=== PATIENT | female | born 2000 | race Caucasian/White ===

== ENCOUNTER 2020-01-31 14:09 | Emergency (ER) | payer OTHER, SELFPAY ==
[2020-01-31] VITALS (7 sets, daily range): BP systolic 96–122; BP diastolic 48–67; PULSE 86–126; RESP 16–34; TEMP 37.1–38; O2SAT 98–100
--- NOTE | 2020-01-31 14:27 | CT_ITS ---
STUDY: CT ABDOMEN AND PELVIS WITHOUT CONTRAST REASON FOR EXAM: Female, 19 years old. PT STATED SUPRAPUBIC REDNESS AND PAIN STARTED 3 DAYS AGO RADIATION DOSAGE (If Supplied By Facility): CTDIvol = ( 7.08 ) mGy, DLP = ( 458.46 ) mGycm TECHNIQUE: Transaxial images were obtained from the dome of the diaphragm to the symphysis pubis without oral contrast, and without intravenous contrast. Sagittal and coronal images were reconstructed. Individualized dose optimization techniques were used for this CT. COMPARISON: None. FINDINGS: The visualized lung bases are unremarkable. The visualized portions of the heart are within normal limits. Normal liver. Normal gallbladder and extrahepatic biliary system. Normal spleen. Normal pancreas. Punctate calcification in the right adrenal gland. 2 mm calculus in the lower pole calyx of the right kidney. Normal left kidney. Normal visualized stomach. Normal small intestine. Normal colon. The appendix is visualized and appears normal. Normal abdominal aorta. Normal inferior vena cava. Normal retroperitoneum. Normal urinary bladder. Small follicles are seen in the right ovary. Phleboliths are seen in the pelvis. There is evidence of skin thickening and increased markings in the subcutaneous fat within the anterior lower abdominal and pelvic aguirre. This is slightly worse towards the right side of the midline. No fluid or abscess collection is seen. Slightly enlarged bilateral inguinal lymph nodes. Normal osseous structures. CT/Abdomen/Pelvis without Cont IMPRESSION: Findings suggestive of a cellulitis with skin thickening and subcutaneous inflammatory changes in the lower anterior abdominal and pelvic aguirre without a discrete abscess or fluid collection. Punctate calcification the lower pole calyx of the right kidney. Electronically Signed: Nitesh Ocampo, at 15:27 EDT , Service support ,
[2020-01-31] MEDS: Acetaminophen 500 MG Tablet 1000 MG PO (14:42)
[2020-01-31] MEDS: Ondansetron 4 MG/2 ML Vial IV (14:43)
[2020-01-31] MEDS: Morphine 4 MG/ML Syringe IV (14:43)
[2020-01-31] MEDS: 0.9% Normal Saline 1,000 ML 999 ML IV (14:43)
[2020-01-31 15:05] LABS: Absolute Lymphocyte Count 1.32 X10^3/uL (0.83-4.51); Absolute Neutrophil Count 17.2 X10^3/uL (2.0-7.7); Basophil# 0.06 X10^3/uL; Basophil% 0.3 % (0-1); Eosinophil# 0.14 X10^3/uL; Eosinophils% 0.7 % (0-5); Hematocrit 37.6 % (37-47); Hemoglobin 12.3 g/dL (12.0-15.0); Lymphocyte # 1.32 X10^3/ul (4.0); Lymphocyte % 6.4 % (19-41); Mean Corp Hgb Conc 32.7 g/dL (32-36); Mean Corpuscular Hgb 28.7 pg (27.0-32.0); Mean Corpuscular Volume 87.6 fL (81-99); Mean Platelet Vol. 9.3 fl (6.2-12.0); Monocyte# 1.67 X10^3/uL; Monocyte% 8.1 % (0-10); NRBC Flagged by Analyzer 0 % (0-5); Neutrophil # 17.23 X10^3/uL (2.7-7.7); Neutrophil % 83.6 % (47-70); POSITIVE DIFFERENTIAL YES; Platelet Count 285 K/mm3 (150-450); RBC Distribution Width CV 14.1 % (11.6-14.6); RBC Distribution Width SD 44.8 fl (35.1-43.9); Red Blood Count 4.29 M/mm3 (4.2-5.4); White Blood Count 20.6 K/mm3 (4.4-11.0)
[2020-01-31 15:12] LABS: Internal QC Validated? YES +Cl - CLEAR BKGD; Pregnancy, Serum, hCG Quali. NEGATIVE Negative
[2020-01-31 15:13] LABS: International Normalized Ratio 1.2; Prothrombin Time (Protime)PT. 14.5 SECONDS (11.7-14.9)
[2020-01-31 15:14] LABS: Partial Thromboplast Time 33.8 Seconds (24.1-36.2)
[2020-01-31 15:20] LABS: ALB/GLOB Ratio 0.8 RATIO (0.9-2.4); AST(SGOT) 26 U/L (15-37); Alanine Aminotransfer ALT/SGPT 34 U/L (13-56); Albumin, Serum 3.4 g/dL (3.2-5.0); Alkaline Phosphatase 102 U/L (45-117); Anion Gap 7 (5-15); BUN 5 mg/dL (7-18); BUN/Creat Ratio 5.3 RATIO (10-20); Calcium,Total 9.2 mg/dL (8.5-10.1); Chloride 100 mmol/L (98-107); Creatinine, Serum 0.94 mg/dL (0.55-1.02); Differential Indicated SCAN CRITERIA MET; EST Glomerular Filtration Rate 80 mL/min (>60); Est Glom Filt Rate - Afr Amer 97 mL/min (>60); Estimated Creatinine Clearance 81.75 ml/min; Globulin 4.1 g/dL (2.2-4.2); Glucose 105 mg/dL (74-106); Potassium 3.3 mmol/L (3.5-5.1); Protein, Total 7.5 g/dL (6.4-8.2); Sodium Level 134 mmol/L (136-145)
--- NOTE | 2020-01-31 15:23 | ED.DCSUM_ITS ---
- ER Visit Summary Date of Service: 01/31/20 Chief Complaint: Staph infection History of Present Illness: The patient is a [address] Mike. She reports that she has an abscess in the suprapubic region that began 3 days ago. She describes a sharp, stabbing pain is 1010 at worst and a 10 currently. Is worsened by movement or touching the area. She is used ice with minimal relief. She reports has had a fever to 100.3 degrees and chills. She denies any nausea, vomiting, or diarrhea. Physical Examination: Vitals: Stable. Afebrile. General: Well-nourished and well-developed. Head: Normocephalic atraumatic. Neck: Supple, no lymphadenopathy. No JVD. Nontender. Cardiovascular: Regular rate and rhythm. No murmurs. Respiratory: No respiratory distress. Clear to auscultation bilaterally. Abdominal: Soft, severe tenderness to palpation of the right suprapubic area. There is an approximately 8 cm indurated area with surrounding erythema. No appreciable fluctuance, nondistended, normal bowel sounds. No guarding, rebound, or peritoneal signs. Back: Nontender. Extremities: Nontender, no edema. Skin: Normal color, no rash. Neurologic: Alert and oriented ?3. Cranial nerves II through XII are intact. Normal strength and sensation. Psych: Normal affect. Test Results: CBC shows a white count of 20.6 with 84 segmented neutrophils and 6 lymphocytes. Chem-7 shows a sodium 134 and potassium 3.3. LFTs are normal. Coags are normal. test is negative. Lactic acid is 1.2. Clinical Impression(s) from Imaging Studies Abdomen/Pelvis CT 01/31/20 14:27 IMPRESSION: Findings suggestive of a cellulitis with skin thickening and subcutaneous inflammatory changes in the lower anterior abdominal and pelvic aguirre without a discrete abscess or fluid collection. Punctate calcification the lower pole calyx of the right kidney. Electronically Signed: Nitesh Ocampo, at 15:27 EDT , Service support , Emergency Department Course and Treatment: Patient had an IV placed. She was given morphine, Zofran, Zosyn, and vancomycin IV. She is resting more comfortably. Treatment Plan: I discussed with patient treatment options. She would prefer to attempt having this treated as an outpatient. She will be discharged with Keflex, Bactrim, Curtice, and Bactroban ointment. Instructed to follow-up with her primary care physician in 3 days for a wound check. Return to the emergency department for any worsening symptoms. Disposition: To home in improved and stable condition. Impression: 1. Suprapubic cellulitis. This note was generated with [employer] dictation software. It may contain incorrect words, spelling, and punctuation that were not noted in review of the chart prior to signing ED Disposition - Plan for ED Patient: Instructions: ED Cellulitis Prescriptions: Smz/Tmp Ds [Bactrim Ds] 1 tablet PO BID #14 tablet Mupirocin [Bactroban] 1 applic TOPICAL TID #1 tube Cephalexin [Keflex] 500 mg PO Q6 #28 capsule Hydrocodone Bitart/Apap 5-325 [Curtice 5MG-325MG] 1 tablet PO Q4H PRN PRN 2 Days #10 tablet PRN Reason: Pain Referrals: Jaskaran Mike MD [Primary Care Provider] - 02/04/20
[2020-01-31 15:28] LABS: Lactic Acid 1.2 mmol/L (0.4-1.9)
[2020-02-01 10:42] LABS: Pathologist Review Reviewed
== END 2020-01-31 18:06 | disposition home or self-care (01) ==
LOC: ED 15:28
PROVIDERS: Emergency Provider Emergency Medicine; PCP Family Medicine
DX: L03.311 Cellulitis of abdominal wall (principal); F17.210 Nicotine dependence, cigarettes, uncomplicated
CPT/HCPCS: 74176; 80053; 83605; 84703; 85025; 85610; 85730; 87040; 96365; 96366; 96367; 96375; 99283; J7030; J7040; J7050; A4216; J2405

== ENCOUNTER 2020-03-24 10:15 | Emergency (ER) | payer OTHER, SELFPAY ==
[2020-03-24 10:17] VITALS: BP 132/99; PULSE 111; RESP 156; TEMP 36.6; O2SAT 98; BMI 28.4
--- NOTE | 2020-03-24 11:14 | ED.DCSUM_ITS ---
- ER Visit Summary Date of Service: 03/24/20 Chief Complaint: Sore throat History of Present Illness: The patient is a 19 F who presents with sore throat and cough for the past 4 days. Patient states it is gradually gotten worse. Patient admits to body aches. Patient denies any fevers. Patient does admit to a cough but denies any sputum production. Patient denies any shortness of breath. 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 Patient states she tried going to urgent care or outpatient labs but they would not test her. Physical Examination: Vital signs are stable. Patient is afebrile. Patient is in no acute distress. Oral mucosa is pink and moist. Neck is supple. Trachea is midline. There is no JVD noted. Heart was regular rate and rhythm. Lungs are clear and equal bilaterally. Abdomen is soft. Bowel sounds are normal. There is no tenderness. There is no rebound or guarding noted. Skin is warm dry. Cranial nerves II through XII are intact. There are no focal motor or sensory deficits noted. Extremities are intact. There is no calf tenderness or edema. Test Results: COVID swab was ordered. This will take 3 to 5 days for results. Emergency Department Course and Treatment: Patient was advised of the timeframe for her results. Patient was instructed to quarantine at home until her results came back. Patient was instructed to take Tylenol or ibuprofen as needed for pain or fever. Patient was instructed to drink plenty of fluids. Patient was instructed to follow-up with her primary care physician in 5 to 7 days. Patient understood and was agreeable with the plan. All questions were answered. Disposition: Discharge home Impression: 1. Viral illness This note was generated with Lightspeed[employer] software. It may contain incorrect words, spelling, and punctuation that were not noted in review of the chart prior to signing ED Disposition - Plan for ED Patient: Disposition: Home or Assisted Living Diagnosis: Viral illness Instructions: ED Viral Syndrome Referrals: Jaskaran Mike MD [Primary Care Provider] - 3-5 Days
[2020-03-24 11:19] VITALS: BP 119/78; PULSE 81; RESP 16; TEMP 36.6; O2SAT 100
== END 2020-03-24 11:31 | disposition home or self-care (01) ==
PROVIDERS: Emergency Provider Emergency Medicine; PCP Family Medicine
DX: B34.9 Viral infection, unspecified (principal); F17.210 Nicotine dependence, cigarettes, uncomplicated; Z87.442 Personal history of urinary calculi
CPT/HCPCS: 87635; 99282; G2023; U0003